=== PATIENT | male | born 1960 | race African-American/Black ===

== ENCOUNTER 2022-07-10 06:45 | Emergency (ER) | payer MEDICAID ==
[~2022-07-10] VITALS: Ht 180.3 cm; Wt 77.0 kg
[2022-07-10] MEDS ORDERED: TETANUS, DIPHTHERIA, PERTUSSIS VAC/PF 0.5ML (>10YR OLD) IM ONE (08:45)
[2022-07-10] MEDS ORDERED: LIDOCAINE HCL 1% 20ML VIAL (Pyxis) INJ INFIL ONE (08:45)
[2022-07-10 16:15] VITALS: BP 109/65
[2022-07-10] MEDS ORDERED: SODIUM CHLORIDE 0.9% 1,000 ML IV ONE (16:30)
[2022-07-10 16:56] LABS: HEMATOCRIT. 29.3 % (42.0-52.0); HEMOGLOBIN. 9.6 g/dL (14.0-18.0); MEAN CORPUSCULAR HEMOGLOBIN 26.8 pg (28.0-32.0); MEAN CORPUSCULAR VOLUME 81.8 fL (80.0-94.0); MEAN PLATELET VOLUME 7.5 fl (7.4-10.4); PLATELET 265 x1000/uL (130-400); RED BLOOD CELL COUNT 3.58 mill/uL (4.7-6.1); RED CELL DISTRIBUTION WIDTH 16.5 % (11.6-14.6)
[2022-07-10 17:04] LABS: CHLORIDE 107 mEq/L (98-107)
[2022-07-10 17:12] LABS: ETHANOL BLOOD < 10 mg/dL
[2022-07-10 17:47] LABS: PLATELET ESTIMATE NORMAL
== END 2022-07-10 15:53 | disposition home or self-care (01) ==
LOC: ER 06:45
DX: S61.012A Laceration without foreign body of left thumb without damage to nail, initial encounter (principal); X58.XXXA Exposure to other specified factors, initial encounter; Y93.89 Activity, other specified; Y92.89 Other specified places as the place of occurrence of the external cause; Y99.8 Other external cause status; I10 Essential (primary) hypertension
CPT/HCPCS: 12001; 36415; 73130; 80053; 80320; 82962; 85025; 86850; 86900; 86901; 90471; 90715; 99284; J3490; J7030; Z7610; G0480

== ENCOUNTER 2022-07-10 20:38 | Emergency (ER) | payer MEDICAID ==
[~2022-07-10] VITALS: Ht 175.3 cm; Wt 66.0 kg
[2022-07-10 20:40] VITALS: BP 104/76
[2022-07-10] MEDS ORDERED: ONDANSETRON HCL 4MG/2ML INJ IV STA (20:43)
[2022-07-10] MEDS ORDERED: SODIUM CHLORIDE 0.9% 1,000 ML IV ONE (20:45)
[2022-07-10 23:21] LABS: BASOPHILS % 0.1 % (0.0-2.0); HEMATOCRIT. 27.4 % (42.0-52.0); HEMOGLOBIN. 8.9 g/dL (14.0-18.0); LYMPHOCYTES % 8.2 % (20.0-50.0); MEAN CORPUSCULAR HEMOGLOBIN 26.6 pg (28.0-32.0); MEAN CORPUSCULAR VOLUME 81.5 fL (80.0-94.0); MEAN PLATELET VOLUME 7.8 fl (7.4-10.4); MONOCYTES % 7.8 % (2.0-8.0); NEUTROPHILS % 83.9 % (40.0-76.0); PLATELET 238 x1000/uL (130-400); RED BLOOD CELL COUNT 3.36 mill/uL (4.7-6.1); RED CELL DISTRIBUTION WIDTH 16.4 % (11.6-14.6)
[2022-07-10 23:29] LABS: CHLORIDE 107 mEq/L (98-107)
[2022-07-10 23:41] LABS: ETHANOL BLOOD < 10 mg/dL
== END 2022-07-11 01:11 | disposition home or self-care (01) ==
LOC: ER 20:38
DX: R42 Dizziness and giddiness (principal); R55 Syncope and collapse; R11.0 Nausea; I10 Essential (primary) hypertension
CPT/HCPCS: 36415; 80053; 80320; 85025; 93005; 96361; 96374; 99284; J2405; J7030; Z7610; G0480